=== PATIENT | male | born 1965 | race Caucasian/White ===

== ENCOUNTER 2022-04-07 05:58 | Observation (INO) ==
--- NOTE | 2022-03-19 10:53 | PAT Medication Instructions ---
Medication Instructions Date of Service March 19, 2022 Home Medications albuterol sulfate 90 mcg/actuation aerosol inhaler (Ventolin HFA) 2 puff inhalation QID PRN risperidone 4 mg tablet 2 mg PO QAM citalopram 10 mg tablet (Celexa) 5 mg PO BID finasteride 5 mg tablet 5 mg PO QAM levothyroxine 112 mcg tablet 112 mcg PO QAM triamcinolone acetonide 0.1 % topical cream 1 applic topical BID PRN Check if your prescriber has any recommendations, otherwise continue including day of surgery risperidone 4 mg tablet 2 mg PO QAM STOP taking 24 hours before surgery triamcinolone acetonide 0.1 % topical cream 1 applic topical BID PRN Take morning of surgery With a small sip of water, OTHERWISE NOTHING TO EAT OR DRINK AFTER MIDNIGHT: albuterol sulfate 90 mcg/actuation aerosol inhaler (Ventolin HFA) 2 puff inhalation QID PRN(use if needed; please bring with you to hospital day of surgery if possible) citalopram 10 mg tablet (Celexa) 5 mg PO BID finasteride 5 mg tablet 5 mg PO QAM levothyroxine 112 mcg tablet 112 mcg PO QAM Take evening before surgery albuterol sulfate 90 mcg/actuation aerosol inhaler (Ventolin HFA) 2 puff inhalation QID PRN(if needed) citalopram 10 mg tablet (Celexa) 5 mg PO BID Other Notes If you have any questions please call us at [phone] or [phone] or [phone] or [phone]
--- NOTE | 2022-03-23 14:26 | Anesthesiology Consultation ---
Date of Service March 23, 2022 Assessment & Plan (1) Encounter for pre-operative examination: COVID screening: Per assessment on 03/23: No known COVID-19 positive contacts or current COVID-19 related symptoms. Travel screen negative. Patient vaccinated. At surgeon discretion if preop Covid testing being done. Chart Review Chart Review: Acceptable Risk for Surgery and Patient seen in Pre Admission Testing Teaching & Discussion Pre-Anesthesia Teaching/Discussion Notes: Instructed NPO after midnight before surgery,except medications with 15 cc of water. Medication instructions provided according to the PAT guidelines. History Surgery Operation Date: 04/07/22 09:40 Proposed Procedures p Robotic Bladder Diverticulectomy, Flexible Cystoscopy - Silver Ruiz MD Height/Weight Height: 6 ft 1 in Weight: 91.2 kg Allergies Allergy/AdvReac Type Severity Reaction Status Date / Time Penicillins AdvReac Unknown Verified 03/19/22 08:32 Medications Home Medications Medication Instructions Recorded Confirmed Last Taken albuterol sulfate 90 mcg/actuation 2 puff inhalation QID PRN 10/17/20 03/19/22 Unknown aerosol inhaler (Ventolin HFA) Shortness Of Breath Or Wheezing risperidone 4 mg tablet 2 mg PO QAM 10/17/20 03/19/22 Unknown citalopram 10 mg tablet (Celexa) 5 mg PO BID 12/04/21 03/19/22 Unknown finasteride 5 mg tablet 5 mg PO QAM 03/19/22 03/19/22 Unknown levothyroxine 112 mcg tablet 112 mcg PO QAM 03/19/22 03/19/22 Unknown triamcinolone acetonide 0.1 % 1 applic topical BID PRN Skin 03/19/22 03/19/22 Unknown topical cream Irritation Past Medical History Medical History Anxiety Asthma Bladder diverticulum Depression Generalized anxiety disorder Per [facility] records History of urinary retention Self catheterize daily Hx of eczema Winter flares Hypothyroidism Schizoaffective disorder Per [facility] records Exercise / Class Metabolic Activity II 4-5 Yardwork/Stairs/Walk up hill Past Family History Family History Father Mesothelioma Uncle Myocardial infarction Denies family history of Ovarian cancer Prostate cancer Diabetes Breast cancer Lung cancer Colorectal cancer Stroke Past Surgical History Surgical History H/O colonoscopy 2018 History of esophagogastroduodenoscopy (EGD) Past Anesthesia History No Hx of Anesthesia Complications and No Family Hx of Anesthesia Complications History of PONV No Hx of PONV and No Hx of Motion Sickness Social History Smoking Status: Never smoker Do You Dip or Chew Tobacco: No Hx Alcohol Use: Yes alcohol intake frequency: holidays/special occasions only Alcohol Intake Frequency Comment: "doesn't drink any more" Hx Substance Use: No substance use type: does not use Review of Systems Hx palpitations several years ago s/p unremarkable holter monitoring. Patient denies chest pain, shortness of breath, dyspnea on exertion, fever, chills, cough, wheezing. Physical Exam Vital Signs VITALS BP 111/69 P 62 TEMP 98.0 SP02 96%RA RESP 16 PHYSICAL Mildly decreased cervical extension range of motion. Full TMJ range of motion. TMD 1 finger breaths Mallampati Score 4 Dentition: intact, + crowns Lungs: clear throughout to auscultation Cardiac: regular rate and rhythm, no murmurs noted Spine: normal Carotid arteries: negative bruit Extremities: no edema Lab Results Anesthesia Preop Results Results Anesthesia Widget: WBC 4.44 K/ul (4.8-10.8) L 03/23/22 Hgb 14.5 g/dl (14.0-18.0) 03/23/22 Hct 41.6 % (40.1-51.0) 03/23/22 Plt 190 K/uL (130-400) 03/23/22 Na 140 mmol/L (136-145) 03/23/22 K 4.2 mmol/L (3.5-5.1) 03/23/22 Cl 108 mmol/L (98-107) H 03/23/22 CO2 27 mmol/L (21-32) 03/23/22 BUN 30 mg/dl (6-23) H 03/23/22 Creat 0.93 mg/dl (0.6-1.4) 03/23/22 Glucose Level 96 mg/dl (70-99(Fasting)) 03/23/22 Urine Color Yellow 03/23/22 Urine Appearance Clear (Clear) 03/23/22 Urine pH 5.0 (4.5-7.5) 03/23/22 Urine Specific [place] 1.016 (1.000-1.030) 03/23/22 Urine Protein Negative (Negative) 03/23/22 Urine Glucose (UA) Negative (Negative) 03/23/22 Urine Ketones Negative (Negative) 03/23/22 Urine Blood Negative (Negative) 03/23/22 Urine Nitrite Positive (Negative) A 03/23/22 Urine Bilirubin Negative (Negative) 03/23/22 Urine Urobilinogen Negative (Negative) 03/23/22 Urine Leukocyte Esterase Negative (Negative) 03/23/22 Urine WBC (Auto) 1-5 /hpf (0-5) 03/23/22 Urine RBC (Auto) 0-4 /hpf (0-4) 03/23/22 Urine Hyaline Casts (Auto) 1-5 /lpf (0-5) 03/23/22 Urine Epithelial Cells (Auto) 20-30 /lpf (0-5) H 03/23/22 Urine Bacteria (Auto) 2+ (Negative) H 03/23/22 Urine Yeast Not Reportable 03/23/22 Testing Electrocardiogram Date: 03/23/22 SB at 51bpm. Otherwise normal ECG. Chest X-Ray Date: 03/23/22 FINDINGS: Lung volumes are normal. Lungs are clear. There is no pneumothorax or pleural effusion. Cardiac size is normal. Mediastinal contours are normal. There is no evidence for pulmonary edema. IMPRESSION: No acute cardiopulmonary findings. Stress Test Date: 10/07/16 No evidence of ECG changes to suggest ischemia. Arrhythmias were not significant. Calculated Cle[place] treadmill score of 11. No clear evidence of significant reversible ischemia is noted. A small mild mostly fixed inferior wall defect is noted on stress and rest images which improves on CT corrected SPECT images. Probably normal study. EF 64%. 104% MPHR. "Low risk study " COVID-19 Risk Screen Screening Information COVID-19 Screen Date: 03/23/22 Exposure 21 Days Family/Household +COVID Last 21 Days: No Exposure 10 Days Any COVID Exposure Last 10 Days: No Symptoms Last 10 Days Experienced COVID Sx Last 10 Days: No + COVID 0-90 Days COVID + in Last 0-90 Days: No
[2022-04-07] MEDS ORDERED: LR 15ML/HR IV SCH (06:00)
[2022-04-07] MEDS ORDERED: HEPARIN SOD 5,000 UNIT/0.5 ML VIAL SQ SCH (06:00)
[2022-04-07] MEDS ORDERED: fentaNYL citrate 100 MCG/2 ML VIAL ONE (07:05)
[2022-04-07] MEDS ORDERED: MIDAZOLAM HCL 1 MG/ML 2ML VIAL ONE (07:05)
[2022-04-07] MEDS ORDERED: BELLADONNA/OPIUM SUPP 60 MG SUPP PR ONE ×2 (07:13→08:56)
--- NOTE | 2022-04-07 07:27 | History & Physical Bridge Note ---
Date of Service April 07, 2022 History & Physical Bridge Note I have examined the patient, reviewed the History & Physical and in the interval since the performance of the History & Physical I have noted the following changes of clinical significance: no changes noted
[2022-04-07] MEDS ORDERED: Nursing to Pharmacy Communication SCH (07:30)
[2022-04-07] MEDS ORDERED: CIPROFLOXACIN 400MG / 200ML D5W IV ONE (07:30)
[2022-04-07] MEDS ORDERED: ONDANSETRON INJ 2 MG/ML 2 ML VIAL IV PRN ×2 (07:31→11:21)
[2022-04-07] MEDS ORDERED: NALOXONE HCL 0.4 MG/1 ML VIAL/CARP IV PRN (07:31)
[2022-04-07] MEDS ORDERED: PROMETHAZINE HCL 12.5 MG in SODIUM CHLORIDE 0.9% 50 ML IV PRN (07:31)
[2022-04-07] MEDS ORDERED: HYDROmorphone INJ 1 MG/ML SYRINGE IV PRN (07:31)
[2022-04-07] MEDS ORDERED: LABETALOL HCL IV 5 MG/ML 20ML IV PRN (07:31)
[2022-04-07] MEDS ORDERED: ATROPINE SULFATE 0.1 MG/ML 10ML SYR IV PRN (07:31)
[2022-04-07] MEDS ORDERED: fentaNYL citrate 100 MCG/2 ML VIAL IV PRN (07:31)
[2022-04-07] MEDS ORDERED: ePHEDrine sulfate 50 MG/ML AMP IV PRN (07:31)
[2022-04-07] MEDS ORDERED: FLUMAZENIL 0.1 MG/1 ML 10 ML VIAL IV PRN (07:31)
[2022-04-07] MEDS: ALLERGY Noted to ORDERED Medication SCH ×5 (07:34→23:18)
[2022-04-07] MEDS ORDERED: BUPIVACAINE 0.5 % 5 MG/1 ML MPF 30ML VIAL ONE (07:35)
[2022-04-07] MEDS ORDERED: HYDROmorphone INJ 2 MG/ML SYR/VIAL ONE (08:24)
[2022-04-07] MEDS ORDERED: LIDOCAINE 2% MPF LOCAL 5 ML VIAL INFIL ONE (08:25)
[2022-04-07] MEDS ORDERED: DEXAMETHASONE SOD INJ 4 MG/ML VIAL ONE (08:25)
[2022-04-07] MEDS ORDERED: ePHEDrine sulfate 50 MG/ML SYR ONE (08:25)
[2022-04-07] MEDS ORDERED: GLYCOPYRROLATE 0.2 MG/ML VIAL ONE (08:25)
[2022-04-07] MEDS ORDERED: ROCURONIUM BROMIDE 10 MG/ML 5 ML VIAL IV ONE (08:25)
[2022-04-07] MEDS ORDERED: PHENYLEPHRINE 100MCG/ML 5ML SYR ONE (08:25)
[2022-04-07] MEDS ORDERED: PROPOFOL IV EMULSION 10 MG/ML 20 ML VIAL IV ONE (08:25)
[2022-04-07] MEDS ORDERED: NEOSTIGMINE METHYLSULFATE 1 MG/ML 10ML VIAL ONE (08:25)
[2022-04-07] MEDS ORDERED: ONDANSETRON INJ 2 MG/ML 2 ML VIAL ONE (08:25)
[2022-04-07] MEDS ORDERED: LARYING-O-JET KIT (LTA) ONE (08:25)
[2022-04-07] MEDS ORDERED: SURGICEL ABSORB HEMOSTAT 2IN X 14IN TOP ONE (08:56)
[2022-04-07] MEDS ORDERED: FLOSEAL HEMOSTATIC MATRIX 10ML TOP ONE (08:56)
--- NOTE | 2022-04-07 10:11 | Operative Report ---
PG Post Operative Report Pre & Post Diagnosis Operation Date: 04/07/22 07:30 Pre-Op Diagnosis: Urinary Retention, Diverticulum of Bladder Post-Op Diagnosis: Urinary Retention, Diverticulum of Bladder I identified the patient and participated in the time-out.: Yes Procedure Operation Date: 04/07/22 07:30 Actual Procedures p Robotic Bladder Diverticulectomy, Flexible Cystoscopy(Not Applicable) - Silver Ruiz MD Surgeon Silver Ruiz MD Pharmacy Clerk Loreta Tran Estimated Blood Loss 20 Findings Consistent with Post-Op Diagnosis Specimens Bladder diverticulum Description of Procedure The patient was identified in the preoperative holding area, appropriate informed consents were reviewed and completed and the patient was transferred to the operative suite. Upon arrival, appropriate antibiotics and anesthesia were administered and the patient was placed in supine position where he was sterilely prepped and draped. To begin the case I passed a cystoscope per urethra. Inspection revealed a healthy-appearing urethra and a small prostate. The bladder was inspected. Bladder was healthy, there was a small amount of inflammation surrounding a narrow neck into a large posterior diverticulum. I was not able to advance the scope into the diverticulum but I did advance a wire and ultimately placed a c ouncil tip catheter into the diverticulum. There is no visible tumor or other abnormality aside from the inflammation around the diverticular neck. After withdrawing the cystoscope and placing the catheter we insufflated the abdomen by placement of a Veress needle in the periumbilical area. I then placed ports in the standard fashion I would place them for robotic prostatectomy. After filling the bladder I was able to easily identify the location of the diverticulum. I incised the peritoneum in the pouch of Joey overlying the diverticulum and began to skeletonize it. The vas deferens was somewhat adherent to the posterior portion of this diverticulum but I was able to dissect it away. The ureter also came relatively close to this but I believe I stayed far from it. After circumferentially dissecting around the diverticulum I incised into it approximately 1 cm to 2 cm from the diverticular neck. This allowed internal inspection. I confirmed the location of the diverticular neck and then incised the bladder with approximately 1 cm margin around the diverticular neck. This entirely freed the diverticulum which was collected in an Endo Catch bag. There was a relatively adherent white inflammatory rind on the inner aspect of the diverticular neck. No papillary tumors were visualized. After inspecting the bladder and confirming that there were no abnormalities around the area in which the bladder was opened, I reapproximated the mucosa first with a 3 OV lock suture followed by imbrication of muscle over this defect utilizing a 2 OV lock suture. The bladder closure was then tested without any evidence of a leak. I reapproximated the peritoneum and concluded the robotic portion of the case. The specimen was extracted through the supraumbilical port. Fascia was closed with [id number] 0 PDS sutures. All skin was infiltrated with half percent Marcaine. Skin was closed with 4-0 Monocryl and Dermabond. There were no complications. His Austin cath will be left in place for at least 10 days at which time we will have a cystogram to confirm healing. I attest to the content of the Intraoperative Record and any orders documented therein. Any exceptions are noted below.
--- NOTE | 2022-04-07 10:59 | Anesthesiology Progress Note ---
Date of Service April 07, 2022 Anesthesia Post Procedure Vital Signs Vital Signs: Temp Pulse Pulse Resp BP Pulse Ox O2 Del Method 04/07/22 10:45 52 L 16 136/73 94 Room Air 04/07/22 10:35 52 L 14 127/83 96 Room Air 04/07/22 10:25 51 L 12 138/76 100 Oxymask 04/07/22 10:15 36.0 C L 59 L 13 121/73 96 Oxymask 04/07/22 06:20 36.4 C L 51 L 16 111/70 95 Room Air O2 Flow Rate 04/07/22 10:45 04/07/22 10:35 04/07/22 10:25 10 04/07/22 10:15 10 04/07/22 06:20 Transfer of Care Handoff Completed per policy Notes Mental Status: alert / awake / arousable Patient Amnestic to Procedure: Yes Nausea / Vomiting: adequately controlled Pain: adequately controlled Airway Patency, RR, SpO2: stable & adequate BP & HR: stable & adequate Hydration State: stable & adequate Anesthetic Complications: no major complications apparent
[2022-04-07 11:01] LABS: Basophils # (auto) 0.01 K/uL (0-0.2); Basophils % (auto) 0.2 %; Eosinophils # (auto) 0.03 K/uL (0-0.50); Eosinophils % (auto) 0.7 %; Hematocrit (blood only) 42.4 % (40.1-51.0); Hemoglobin 14.5 g/dl (14.0-18.0); Immature Granulocytes # (auto) 0.02 K/uL (0.00-0.02); Immature Granulocytes % (auto) 0.4 %; Lymphocytes # (auto) 0.43 K/uL (1.2-3.4); Lymphocytes % (auto) 9.5 %; Mean Corpuscular Hemoglobin 29.8 pg (25.0-34.0); Mean Corpuscular Hgb Conc 34.2 g/dL (32.0-36.0); Mean Corpuscular Volume 87.2 fL (80.0-100.0); Mean Platelet Volume 9.2 fL (9.4-12.4); Monocytes # (auto) 0.13 K/uL (0.24-0.82); Monocytes % (auto) 2.9 %; Neutrophils # (auto) 3.93 K/uL (1.4-6.5); Neutrophils % (auto) 86.3 %; Platelet Count 158 K/uL (130-400); RDW Coefficient of Variation 12.6 % (11.5-14.5); RDW Standard Deviation 39.8 fL (36.4-46.3); Red Blood Count 4.86 M/uL (4.63-6.08); White Blood Count 4.55 K/ul (4.8-10.8)
[2022-04-07] MEDS ORDERED: oxyCODONE HCL IR 5 MG TAB (IMMEDIATE RELEASE) PO PRN ×2 (11:21)
[2022-04-07] MEDS ORDERED: MoRPHine SULFATE 4 MG/ML 1 ML CARP\\VIAL IV PRN (11:21)
[2022-04-07] MEDS ORDERED: ACETAMINOPHEN 325 MG TAB PO PRN (11:21)
[2022-04-07] MEDS ORDERED: MoRPHine SULFATE 2 MG/ML CARP IV PRN (11:21)
[2022-04-07 11:28] LABS: Creatinine Clr Calc Pharmacy 86.5 ml/min; Est GFR (African American) 88.1 ml/min; Potassium 4.5 mmol/L (3.5-5.1)
[2022-04-07] MEDS ORDERED: ALBUTEROL HFA 8 GM INHALER INH PRN (11:38)
[2022-04-07] MEDS: LACTATED RINGER'S 1,000 ML IV SCH ×2 (11:43→22:22)
[2022-04-07] MEDS: CITALOPRAM 20 MG TAB PO SCH (21:14)
[2022-04-07] MEDS: HEPARIN SOD 5,000 UNIT/0.5 ML VIAL SQ SCH (21:14)
[2022-04-07] MEDS: CIPROFLOXACIN / D5W 400 MG/200 ML BAG IV SCH (22:22)
[2022-04-08] MEDS ORDERED: LEVOTHYROXINE SODIUM 112 MCG TABLET PO SCH (06:30)
[2022-04-08 06:33] LABS: Basophils # (auto) 0.01 K/uL (0-0.2); Basophils % (auto) 0.1 %; Eosinophils # (auto) 0.02 K/uL (0-0.50); Eosinophils % (auto) 0.2 %; Hematocrit (blood only) 39.6 % (40.1-51.0); Hemoglobin 13.6 g/dl (14.0-18.0); Immature Granulocytes # (auto) 0.03 K/uL (0.00-0.02); Immature Granulocytes % (auto) 0.3 %; Lymphocytes % (auto) 12.1 %; Mean Corpuscular Hemoglobin 29.7 pg (25.0-34.0); Mean Corpuscular Hgb Conc 34.3 g/dL (32.0-36.0); Mean Corpuscular Volume 86.5 fL (80.0-100.0); Mean Platelet Volume 9.1 fL (9.4-12.4); Monocytes # (auto) 0.97 K/uL (0.24-0.82); Monocytes % (auto) 10.6 %; Neutrophils # (auto) 6.98 K/uL (1.4-6.5); Neutrophils % (auto) 76.7 %; Platelet Count 156 K/uL (130-400); RDW Coefficient of Variation 12.9 % (11.5-14.5); RDW Standard Deviation 40.2 fL (36.4-46.3); Red Blood Count 4.58 M/uL (4.63-6.08); White Blood Count 9.11 K/ul (4.8-10.8)
[2022-04-08 07:40] LABS: BUN Creatinine Ratio 12.7 (10-20); Calcium 8.8 mg/dl (8.5-10.1); Creatinine Clr Calc Pharmacy 92.5 ml/min; Est GFR (African American) 95.5 ml/min; Est GFR (Non-African American) 82.4 ml/min; Potassium 3.9 mmol/L (3.5-5.1)
[2022-04-08] MEDS: LACTATED RINGER'S 1,000 ML IV SCH (08:00)
[2022-04-08] MEDS: CIPROFLOXACIN / D5W 400 MG/200 ML BAG IV SCH (08:00)
[2022-04-08] MEDS: CITALOPRAM 20 MG TAB PO SCH (08:00)
[2022-04-08] MEDS: HEPARIN SOD 5,000 UNIT/0.5 ML VIAL SQ SCH (08:01)
--- NOTE | 2022-04-08 08:09 | Urology Progress Note ---
Date of Service April 08, 2022 Assessment & Plan (1) Diverticulum of bladder: Plan: Postop day #1 status post robotic bladder diverticulectomy Doing very well Discharge home today with catheter in place Cystogram in 7 to 10 days Admission and Anticipated Discharge Date Admission Date: April 07, 2022 Subjective Some discomfort overnight but much better this morning Only has been using Tylenol for pain Has been ambulatory Urine is clear Physical Exam Physical Exam: Incisions appropriate, minimal bruising Urine clear Results & Data ([facility]) Vital Signs (Past 12 Hours) Vital Signs Temp Pulse Resp BP Pulse Ox O2 Del Method 04/08/22 08:06 36.9 C 46 L 16 96 Room Air 04/08/22 02:51 36.4 C L 101 H 14 103/51 L 97 Room Air 04/07/22 21:36 37.1 C 50 L 14 95/58 L 97 Room Air PG Care Time/CCT Total # of Minutes Spent Total Time Spent with Patient: Total time spent is greater than 50% in coordination of care (as documented) at patient's floor/unit and/or counseling patient: Coding Level of Care Code None Diagnoses Diverticulum of bladder N32.3
[2022-04-08] MEDS ORDERED: FINASTERIDE 5 MG TAB PO SCH (09:00)
[2022-04-08] MEDS ORDERED: risperiDONE 2 MG TABLET PO SCH (09:00)
--- NOTE | 2022-04-08 12:46 | Discharge Summary ---
Date of Service April 08, 2022 Admission HPI Per Admitting Provider Urinary retention with a large bladder diverticulum here for scheduled Robotic Bladder Diverticulectomy, Flexible Cystoscopy. Admission Exam Per Admitting Provider Constitutional well developed and well nourished Neck neck nontender Respiratory normal respiratory effort; no respiratory distress and does not use accessory muscles Cardiovascular Rate/Rhythm: regular rate Vessels: radial pulses present Extremities: no edema Gastrointestinal (Abdomen) Inspection/Auscultation: abdomen normal to inspection Percussion/Palpation: abdomen soft; abdomen nontender and no guarding Musculoskeletal Head/Neck/Chest: normocephalic and head atraumatic Extremities: extremities normal to inspection Skin no rashes and no lesions Trauma: no evidence of skin trauma Neurologic awake; not obtunded Speech / Cognition: normal speech Motor/Sensory: no tremor Psychiatric Orientation: alert and oriented x 3 Genitourinary no CVA tenderness Lymphatic no lymphadenopathy Principal Diagnosis Urinary retention, Bladder diverticulum Discharge Exam Constitutional well developed and well nourished; no acute distress Respiratory normal respiratory effort; no respiratory distress and no labored breathing Cardiovascular Extremities: no pedal edema Gastrointestinal (Abdomen) Inspection/Auscultation: abdomen normal to inspection; abdomen not distended Musculoskeletal Extremities: extremities normal to inspection Skin no rashes, warm and dry Neurologic moves all extremities and awake Psychiatric Orientation: alert and oriented x 3 Genitourinary Austin catheter intact and draining clear yellow urine Discharge Data Allergies Allergy/AdvReac Type Severity Reaction Status Date / Time Penicillins AdvReac Unknown Verified 04/07/22 06:15 Procedures Performed Operation Date: 04/07/22 07:30 Actual Procedures p Robotic Bladder Diverticulectomy, (Not Applicable) - Silver Ruiz MD s Flexible Cystoscopy(Not Applicable) - Silver Ruiz MD Hospital Course (1) Diverticulum of bladder: Postop day #1 status post robotic bladder diverticulectomy Doing very well Discharge home today with catheter in place Cystogram in 7 to 10 days Patient doing well on reassessment and ready for discharge. Orders placed for discharge to home with Austin catheter. He is scheduled for Cystogram on 04/15. Follow-up appointments in place. Expected clinical course reviewed, all questions answered. Total Time Total Time Spent Total Time Spent (In Minutes): 29 Discharge Plan Discharge Items Patient Disposition: Home - Self-Care Reason For Visit: Urinary Retention, Diverticulum of Bladder, Cathet Discharge Diagnosis: Urinary retention, diverticulum of bladder Activity: Per Instructions section Lifting: No more than 25 pounds Bathing Comment: Okay to shower after discharge, no tub bath or soaking Sexual Activity: Wait until after follow-up appointment Exercise/Sports: Wait until after follow-up appointment Driving/Machine Use: No driving while taking prescription pain medication Non-emergency contact: Surgeon Call non-emergency contact if: your pain is not controlled, your pain is concerning for you, you have a fever, your temperature is above 101.5, your wound has increased redness, your wound has increased drainage and your wound pain has increased Follow-up/Referrals: Silver Ruiz MD [Physician] - 04/20/22 10:00 am Xavier Goss DO [Primary Care Provider] - 04/10/22 11:30 am Diet: Regular Addtl Attending Provider Instructions: Please take all medications as prescribed and keep all follow-ups as scheduled. Please call our office at [phone] with any questions, concerns or need to reschedule appointments for any reason. We are happy to assist you. You are scheduled for a Cystogram on 04/15/22 at 8 am. Please arrive at main entrance to the hospital at 7:30 am. You will go directly to [facility] urology office after your cystogram for your catheter removal appointment at 9 am. Start your antibiotic 1 day prior to catheter removal. Activity: We recommend having someone with you for the first few days after surgery to help care for you. We encourage you to walk around, but avoid exercise or heavy activity until your follow-up. Don't lift anything heavier than 25 pounds, mow the law or ride a bicycle until your follow-up appointment. Please avoid long car rides. Home Care: Unless directed otherwise, drink 6 to 8 glasses of water a day (enough to keep your urine light colored). This will also help keep a healthy flow of urine. We recommend using a stool softener for the first two weeks to avoid constipation. Austin Catheter or Suprapubic Catheter care: Keep the catheter well secured with either a leg back or leg strap with large bag. Empty your bag when it's about half full. You may notice some blood in the bag. This is normal after surgery and while the catheter is in place. Use mild soap (such as Dove or Dial) and water to wash the catheter and the head of your penis daily, or more frequently if needed. Return to your normal diet, we encourage good protein intake to promote healing. You may shower as normal. Please avoid tub baths or soaking until catheter removed and incisions well healed. Wearing sweat pants while you have the catheter is recommended, they will be more comfortable. Follow-up Your follow up appointments for having your catheter removed, and follow up with your physician should already be scheduled. If you have any questions regarding this, please contact our office. Your final pathology report will be discussed at your physician follow-up appointment. Call [facility] at [phone] right away if you have any of the following: Chest pain or trouble breathing (call [phone] or go to the hospital) Fever of 101F or higher, uncontrolled vomiting Heavy bleeding, clots, or bright red blood from the catheter Catheter that falls out or stops draining Foul-smelling discharge from your catheter Redness, swelling, warmth, or increased pain at your incision site Drainage, pus, or bleeding from your incision Pending Studies at Discharge: Yes Studies:: pathology Stand-Alone Forms: My [facility] [email or web address], Smoking Cessation Medications and DC Order Prescriptions: New ciprofloxacin HCl 500 mg tablet 500 mg PO BID Qty: 6 0RF Rx Instructions: start 1 day prior to catheter removal oxycodone-acetaminophen [Percocet] 5-325 mg tablet 1 tab PO TID PRN (Reason: pain) Qty: 10 0RF Continued risperidone 4 mg tablet 2 mg PO QAM albuterol sulfate [Ventolin HFA] 90 mcg/actuation HFA aerosol inhaler 2 puff inhalation QID PRN (Reason: Shortness Of Breath Or Wheezing) citalopram [Celexa] 10 mg tablet 5 mg PO BID triamcinolone acetonide 0.1 % cream 1 applic topical BID PRN (Reason: Skin Irritation) finasteride 5 mg tablet 5 mg PO QAM levothyroxine 112 mcg tablet 112 mcg PO QAM Discontinued doxycycline hyclate 100 mg tablet 100 mg PO BID 10 Days Qty: 20 0RF Rx Instructions: Start 03/28/22 and take up until procedure. Discharge Orders: Discharge Order (Routine); Ordered 04/08/22 Ordered By: Loreta Mota/Other Patient Handouts: Indwelling Urinary Catheter Dc, Leg Bag Care Dc Admission Data Admit Date/Time: 04/07/22 10:14 Attending Provider: Silver Ruiz Admit Provider: Silver Ruiz Primary Care Provider: Xavier Goss Other Interventions: Discharge Summary Assessment (RN) Last Done: 04/08/22 10:26 Coding Level of Care Code D/C DAY MANAGEMENT <30 MINS Diagnoses Diverticulum of bladder N32.3
== END 2022-04-08 12:41 | disposition home or self-care (01) ==
LOC: ASU 05:58 → INTOOBSV 10:14 → PACUINP 10:14 → 3W 13:33